=== PATIENT | female | born 1955 | race Caucasian/White ===

== ENCOUNTER → 2019-06-20 | Outpatient (CLI) | payer OTHER ==
[~2019-06-20] MED LIST: KETO10 PO; OMEG1CAP30; ONDA4ODT MM
[2019-06-24 14:07] LABS: HPV 16 Negative (Negative); HPV 18 Negative (Negative); HPV OTHER HR TYPES Negative (Negative)
== END | disposition home or self-care (01) ==
LOC: LAB SHORT 19:21 → LAB 19:21
PROVIDERS: Nurse Practitioner Women's Health
DX: Z12.72 Encounter for screening for malignant neoplasm of vagina (principal); Z91.89 Other specified personal risk factors, not elsewhere classified
CPT/HCPCS: 87624; G0123

== ENCOUNTER → 2022-10-04 | Outpatient (CLI) | payer OTHER ==
[2022-10-04 17:27] LABS: BASOPHILS ABSOLUTE AUTO 0.04 K/mm3 (0.00-0.23); BASOPHILS PERCENT AUTO 0 % (0-2); EOSINOPHILS ABSOLUTE AUTO 0.01 K/mm3 (0.00-0.68); EOSINOPHILS PERCENT AUTO 0 % (0-6); Hematocrit 36.9 % (33.0-51.0); Hemoglobin 12.6 g/dL (11.5-16.0); IMMATURE GRAN ABSOLUTE AUTO 0.04 K/mm3 (0.00-0.10); IMMATURE GRAN PERCENT AUTO 0 % (0-1); LYMPHOCYTES ABSOLUTE AUTO 2.33 K/mm3 (0.84-5.20); LYMPHOCYTES PERCENT AUTO 19 % (21-46); MONOCYTES ABSOLUTE AUTO 1.56 K/mm3 (0.16-1.47); MONOCYTES PERCENT AUTO 13 % (4-13); Mean Corpuscular HGB 28.6 pg (26.0-34.0); Mean Corpuscular HGB Conc 34.1 g/dL (31.5-36.5); Mean Corpuscular Volume 84 fL (80-100); Mean Platelet Volume 10.6 fL (9.1-12.4); NEUTROPHILS ABSOLUTE AUTO 8.11 K/mm3 (1.96-9.15); NEUTROPHILS PERCENT AUTO 67 % (41-73); Platelet Count 270 K/mm3 (150-400); RDW Coefficient Variation 13.6 % (11.7-14.2); RDW Standard Deviation 42.3 fL (35.1-46.3); White Blood Cell Count 12.09 K/mm3 (4.00-11.30)
[2022-10-04 17:49] LABS: Albumin, Blood 3.6 g/dL (3.4-5.0); Albumin/Globulin Ratio 1.1 (0.8-1.8); Bilirubin, Total 0.5 mg/dL (0.1-1.0); Bun/Creatinine Ratio 46.4 (12.0-20.0); Calcium, Blood 9.1 mg/dL (8.5-10.1); Creatinine, Blood 0.39 mg/dL (0.40-1.00); Globulin, Blood 3.3 g/dL (2.2-4.0); Potassium, Blood 3.4 mmol/L (3.5-5.5); Total Protein, Blood 6.9 g/dL (6.4-8.2)
[2022-10-04 18:29] LABS: Candida species (DNA Probe) Negative (NEGATIVE); G. vaginalis (DNA Probe) Negative (NEGATIVE); T. vaginalis (DNA Probe) Negative (NEGATIVE)
== END | disposition home or self-care (01) ==
LOC: LAB 16:10 → LAB SHORT 16:10
PROVIDERS: Nurse Practitioner Family
DX: E86.0 Dehydration (principal); R11.2 Nausea with vomiting, unspecified; R19.7 Diarrhea, unspecified
CPT/HCPCS: 80053; 83690; 83735; 85025; 87480; 87510; 87660

== ENCOUNTER 2023-05-22 08:27 | Day surgery (SDC) | payer OTHER ==
[2023-05-22] VITALS (22 sets, daily range): BP systolic 103–195; BP diastolic 60–90
[~2023-05-22] VITALS: Ht 152.4 cm; Wt 74.0 kg
[~2023-05-22 08:27] MED LIST changes: +NAPR500 PO; +STOOL SOFTENER; +STOOL SOFTENER PO
--- NOTE | 2023-05-22 10:16 | NUR ---
Ambulatory in Day Surgery. Patient confirms NPO status and agrees with scheduled surgery. Patient reports completing Chlorhexadine shower X2 prior to admission to hospital. Surgical site prepped with 2% Chlorhexidine cloth wipe. History, Chart, Medications and Allergies reviewed before start of procedure. Pre-Op teaching done. Pt verbalizes understanding.
--- NOTE | 2023-05-22 17:39 | NUR ---
SHIFT SUMMARY PT A&OX4, VSS/RA, PAIN MANAGED, N&V MEDS GIVEN, HAS NOT BEEN OOB, AWAITING POST OP VOID. S/P L TKA, AQUACEL/CATIE WRAP CDI. FAMILY BEDSIDE. WILL REPORT TO ONCOMING NOC RN.
[2023-05-23 03:57] VITALS: BP 150/57
[2023-05-23 04:19] LABS: BASOPHILS ABSOLUTE AUTO 0.03 K/mm3 (0.00-0.23); BASOPHILS PERCENT AUTO 0 % (0-2); EOSINOPHILS ABSOLUTE AUTO 0.01 K/mm3 (0.00-0.68); EOSINOPHILS PERCENT AUTO 0 % (0-6); Hematocrit 34.5 % (33.0-51.0); Hemoglobin 11.4 g/dL (11.5-16.0); IMMATURE GRAN ABSOLUTE AUTO 0.02 K/mm3 (0.00-0.10); IMMATURE GRAN PERCENT AUTO 0 % (0-1); LYMPHOCYTES PERCENT AUTO 24 % (21-46); MONOCYTES ABSOLUTE AUTO 0.85 K/mm3 (0.16-1.47); MONOCYTES PERCENT AUTO 9 % (4-13); Mean Corpuscular HGB 28.8 pg (26.0-34.0); Mean Corpuscular Volume 87 fL (80-100); Mean Platelet Volume 10.6 fL (9.1-12.4); NEUTROPHILS ABSOLUTE AUTO 6.34 K/mm3 (1.96-9.15); NEUTROPHILS PERCENT AUTO 66 % (41-73); Platelet Count 241 K/mm3 (150-400); RDW Coefficient Variation 13.3 % (11.7-14.2); RDW Standard Deviation 42.5 fL (35.1-46.3); Red Blood Cell Count 3.96 M/mm3 (3.80-5.20); White Blood Cell Count 9.55 K/mm3 (4.00-11.30)
[2023-05-23 04:42] LABS: Bun/Creatinine Ratio 18.3 (12.0-20.0); Calcium, Blood 8.4 mg/dL (8.5-10.1); Creatinine, Blood 0.55 mg/dL (0.40-1.00)
--- NOTE | 2023-05-23 06:34 | NUR ---
POD 1 S/P L TKA. PT VSS T/O NIGHT. DRESSING CDI, CAP REFILL AND PULSES WNL. PT REP SENSATION AT BASELINE. PAIN MGD PER EMAR W/REP RELIEF. PT JARED PO, DENIED N/V. PT UP OOB W/FWW+SBA, JARED WELL. PLAN TO MOBILIZE W/PT AND DC HOME WHEN CLEARED.
[2023-05-23 07:15] VITALS: BP 174/65
[2023-05-23 07:16] VITALS: BP 147/70
[2023-05-23] MEDS ORDERED: ASPI81CH PO (10:06)
[2023-05-23] MEDS ORDERED: Percocet 5-3251 EACH PO (10:06)
--- NOTE | 2023-05-23 11:14 | NUR ---
Pt. is sitting in a recliner awaiting discharge when she welcomes my visit. Pt. is pleasant and verbalizes her encouagement by the medical and support care she has received at the hospital. Considered matters of kristin and belief and normalized the Pt. experience. Pt. displayed evidence of awareness and enagagement. Prayed with Pt. Pt. verbalized gratitude for the spiritual care visit.
--- NOTE | 2023-05-24 15:06 | NUR ---
05/24/23 1506 Michaela Duncan VERIFICATIONS: EDIT CHART.
== END 2023-05-23 11:24 | disposition home or self-care (01) ==
LOC: ORSCMMR 08:27 → ORD 10:00 → ORSCMMR 10:00 → ORD 11:00 → SURS 14:30 → ORSCMMR 05-23 11:24
PROVIDERS: Orthopaedic Surgery
PROC: 0SRD0JA Replacement of Left Knee Joint with Synthetic Substitute, Uncemented, Open Approach (ICD-10-PCS; principal; 2023-05-22 10:00)
DX: M17.12 Unilateral primary osteoarthritis, left knee (principal); I10 Essential (primary) hypertension; Z79.899 Other long term (current) drug therapy
CPT/HCPCS: 36415; 73560-LT; 80048; 85025; 97110; 97116; 97162; 97530; A9270; C1713; C1776; J0171; J0690; J0735; J0780; J1170; J1885; J2250; J2405; J2704; J2795; J3010; J7120